=== PATIENT | female | born 1955 | race Caucasian/White ===

== ENCOUNTER 2024-02-03 14:43 | Day surgery (SDC) | payer MEDICARE, MEDICAID ==
[2024-01-27 16:37] LABS: BASOPHILS # (AUTO) 0.1 X10'3 (0-0.2); BASOPHILS % (AUTO) 1.1 % (0-1); EOSINOPHILS # (AUTO) 0.3 X10'3 (0-0.9); EOSINOPHILS % (AUTO) 4.1 % (0-6); LYMPHOCYTES # (AUTO) 2.2 X10'3 (1.1-4.8); LYMPHOCYTES % (AUTO) 30.8 % (21-51); MEAN CORPUSCULAR HEMOGLOBIN 31.7 PG (27.0-31.0); MEAN CORPUSCULAR HGB CONC 33.5 g/dL (33.0-36.5); MEAN CORPUSCULAR VOLUME 94.5 FL (78-98); MEAN PLATELET VOLUME 8.3 FL (7.4-10.4); MONOCYTES # (AUTO) 0.5 X10'3 (0-0.9); MONOCYTES % (AUTO) 6.5 % (2-12); NEUTROPHILS # (AUTO) 4.2 X10'3 (1.8-7.7); NEUTROPHILS % (AUTO) 57.5 % (42-75); PRE OP HEMATOCRIT 39.8 % (35.0-45.0); PRE OP HEMOGLOBIN 13.3 g/dL (12.0-16.0); PRE OP PLATELET COUNT 169 X10'3 (140-440); PRE OP WHITE BLOOD COUNT 7.3 10'3 (4.8-10.8); RED BLOOD COUNT 4.21 X10'6 (4.20-5.60); RED CELL DISTRIBUTION WIDTH 14.2 % (11.5-14.5)
[2024-01-27 16:52] LABS: ALBUMIN 3.6 G/DL (3.4-5.0); ALBUMIN/GLOBULIN RATIO 1.1 (1.1-1.5); ALKALINE PHOSPHATASE 112 IU/L (46-116); BLOOD UREA NITROGEN 7 MG/DL (7-18); BUN/CREATININE RATIO 8.3 (10.0-20.0); CALCIUM 8.8 MG/DL (8.5-10.1); CHLORIDE 105 MMOL/L (99-107); CREATININE 0.84 MG/DL (0.40-0.90); PRE OP ALT 24 U/L (30-65); PRE OP ANION GAP 5 (8-16); PRE OP AST 22 U/L (10-37); PRE OP BILIRUB, TOTAL 0.3 MG/DL (0.0-1.0); PRE OP GLUCOSE 94 MG/DL (70-104); PRE OP SODIUM 141 MMOL/L (135-145); TOTAL CARBON DIOXIDE 30.9 MMOL/L (24-32); eGFR 67 ML/MIN
[2024-01-27 17:04] LABS: PRE OP POTASSIUM 3.3 MMOL/L (3.4-5.1)
[2024-02-03] VITALS (12 sets, daily range): BP systolic 108–124; BP diastolic 63–80; PULSE 60–73; RESP 11–16; TEMP 98.5; O2SAT 97–100
[~2024-02-03] VITALS: Ht 160 cm; Wt 41.5 kg
[2024-02-03] MEDS: clindamycin-Cleocin 900mg/D5W 50 ML IV ONE (05:30)
[~2024-02-03 14:43] MED LIST: ALPR0.252 PO; AMYL1CAP57 PO; ATR0.5NEB NEB; BACL10TA2 PO; ESTR1TAB28 PO; HYDR-3973 PO; LEVA15HF9 INH; LEVO150T PO; LIOT50TA6 PO; NITR0.4T51 SL; PANT40TA54 PO; VITC500T PO
[2024-02-03] MEDS: ringers solution, lacted 1,000 ML IV SCH (15:32)
[2024-02-03] MEDS: famotidine 20mg tablet PO ONE (15:32)
[2024-02-03 15:44] LABS: ISTAT CREATININE 0.8 mg/dL (0.6-1.1); ISTAT HGB 13.3 g/dl (12.0-16.0); ISTAT IONIZED CALCIUM 1.23 mmol/L (1.03-1.32); ISTAT K 3.7 mmol/L (3.5-5.1); POC BUN/CREATININE RATIO 11.3 (6.6-38.0)
[2024-02-03] MEDS ORDERED: meperidine/PF 25mg/ml syringe IV PRN ×3 (15:45)
[2024-02-03] MEDS ORDERED: ringers solution, lacted 1,000 ML IV SCH (15:45)
[2024-02-03] MEDS ORDERED: labetalol 20mg/4ml (5mg/ml) syringe IV PRN (15:45)
[2024-02-03] MEDS ORDERED: ondansetron/PF 4mg/2ml inj IV PRN (15:45)
[2024-02-03] MEDS ORDERED: enalaprilat dihydrate 2.5mg/2ml vial IV PRN (15:45)
[2024-02-03] MEDS ORDERED: morphine 2 MG/ML inj. syringe IV PRN (15:45)
[2024-02-03] MEDS ORDERED: proCHLORperazine 10 MG/2 ml inj IV PRN (15:45)
[2024-02-03] MEDS ORDERED: morphine 4 MG/ML inj SYRINge IV PRN (15:45)
[2024-02-03] MEDS: HYDROcodone/acetaminophen 10/325mg tab PO ONE (15:51)
[2024-02-03] MEDS: albuterol 2.5 MG/3 ML nebule NEB ONE ×2 (16:04→16:05)
[2024-02-03] MEDS ORDERED: fentaNYL/PF 50MCG/1 ML 2ML syringe ONE (16:54)
[2024-02-03] MEDS ORDERED: midazolam 1 mg/ML 2ml injection ONE (16:54)
[2024-02-03] MEDS ORDERED: sevoflurane 250ml liquid IH ONE (16:58)
[2024-02-03] MEDS ORDERED: LIDOcaine 1% (10mg/ml)w/preservative inj. 20ml MDV ONE (17:02)
[2024-02-03] MEDS ORDERED: BUPIVAcaine 2.5mg/ml inj 50ml vial (contains preservative) ONE (17:02)
[2024-02-03] MEDS ORDERED: LIDOcaine 2% (20mg/ml) 5ml vial ONE ×2 (17:04→17:08)
[2024-02-03] MEDS ORDERED: propofol inj 20 ML IV ONE (17:04)
[2024-02-03] MEDS ORDERED: ePHEDrine 50MG/ML INJ. ONE (17:13)
[2024-02-03] MEDS ORDERED: oxyCODONE/APAP 5-325mg tablet PO PRN (17:40)
== END 2024-02-03 19:27 | disposition home or self-care (01) ==
LOC: PAS 14:43
PROVIDERS: ATTEND Surgery
DX: K43.6 Other and unspecified ventral hernia with obstruction, without gangrene (principal); J44.89 Other specified chronic obstructive pulmonary disease; K21.9 Gastro-esophageal reflux disease without esophagitis; M81.0 Age-related osteoporosis without current pathological fracture; I25.2 Old myocardial infarction; Z79.890 Hormone replacement therapy; Z87.891 Personal history of nicotine dependence; Z79.891 Long term (current) use of opiate analgesic; Z79.899 Other long term (current) drug therapy; Z90.710 Acquired absence of both cervix and uterus; Z95.0 Presence of cardiac pacemaker; Z98.51 Tubal ligation status; Z98.890 Other specified postprocedural states; Z88.0 Allergy status to penicillin; Z88.1 Allergy status to other antibiotic agents; Z88.2 Allergy status to sulfonamides; Z91.041 Radiographic dye allergy status; Z91.040 Latex allergy status; Z88.8 Allergy status to other drugs, medicaments and biological substances
CPT/HCPCS: 36415; 49592; 80047; 80053; 85025; 94640; 94760; A4215; A4618; A7000; J1100; J2003; J2250; J2405; J2704; J3010; J3490; J7030; J7120; Z7506; Z7512; Z7610